=== PATIENT | male | born 1930 | race Caucasian/White ===

== ENCOUNTER → 2017-02-27 | Outpatient (CLI) | payer MEDICARE ==
[2017-02-27 10:20] LABS: Basophils % (A) 1 %; CH 29.4; CHCM 30.6; Eosinophils # (A) 0.3 k/uL (0-0.7); Eosinophils % (A) 5 %; HCT 43.8 % (39.0-53.0); HDW 2.18; HGB 13.8 gm/dL (13.0-17.5); Hypochromasia Slight; Luc # (Auto) 0.19; Luc % (Auto) 4; Lymphocytes # (A) 1.3 k/uL (1.0-4.8); Lymphocytes % (A) 24 %; MCH 30.6 pg (25.0-35.0); MCHC 31.6 g/dL (31.0-37.0); MCV 96.6 fL (80.0-100.0); Mean Platelet Volume 9.9; Monocytes # (A) 0.5 k/uL (0-1.0); Monocytes % (A) 9 %; Neutrophils # (A) 3.1 k/uL (1.3-7.7); Neutrophils % (A) 57 %; RBC 4.53 m/uL (4.30-5.90); RDW 13.5 % (11.5-15.5); WBC 5.4 k/uL (3.8-10.6); WBC (Perox) 5.33
[2017-02-27 10:57] LABS: ALT 33 U/L (21-72); AST 20 U/L (17-59); Alkaline Phosphatase 65 U/L (38-126); Anion Gap 8 mmol/L; Blood Urea Nitrogen 23 mg/dL (9-20); Calcium 9.4 mg/dL (8.4-10.2); Carbon Dioxide 30 mmol/L (22-30); Chloride 104 mmol/L (98-107); Cholesterol 150 mg/dL (<200); Glucose 96 mg/dL (74-99); HDL Cholesterol 39 mg/dL (40-60); Non-African American GFR(MDRD) >60 (>60 ml/min/1.73 sqM); Sodium 142 mmol/L (137-145); Total Bilirubin 0.3 mg/dL (0.2-1.3); Total Protein 7.1 g/dL (6.3-8.2)
== END | disposition home or self-care (01) ==
LOC: LABWHC1 09:30
PROVIDERS: ATTEND Family Medicine
DX: I10 Essential (primary) hypertension (principal)
CPT/HCPCS: 36415; 80053; 80061; 84439; 84443; 85025

== ENCOUNTER → 2018-08-30 | Outpatient (CLI) | payer MEDICARE ==
--- NOTE | 2018-08-30 08:47 | US ---
"EXAMINATION TYPE: US duplex aorta DATE OF EXAM: 08/30/2018 COMPARISON: CT scan 02/11/2015 CLINICAL HISTORY: I71.4 Abdominal Aorta aneurysm. Known AAA EXAM MEASUREMENTS: Abdominal Aorta: Proximal: 2.6 x 2.6 cm Mid: 2.5 x 2.1 cm Distal: 4.6 x 5.2 cm Bifurcation: ELOY: 1.5 x 1.4 cm ANA ROSA: 1.5 x 1.5 cm Proximal and mid aorta ectatic and upper limits of normal for size/ Distal AAA IMPRESSION: 1. Findings are compatible with a infrarenal abdominal aortic aneurysm measuring 4.6 x 5.2 cm this is increased in size from the prior CT scan of 2014 where it measured 4.2 x 3.7 cm. A Yellow level critical message alert has been initiated for Phillip Lee MD via the [employer] 36 0 | Critical Results System on 08/30/2018 8:44 AM. This message alert has been sent to Phillip Lee MD via the preferences provided by the clinician for the receipt of Radiology Critical Findings. [facility] ID [id number]."
== END | disposition home or self-care (01) ==
LOC: RADUSWWP 08:20
PROVIDERS: ATTEND Family Medicine
DX: I71.4 Abdominal aortic aneurysm, without rupture (principal)
CPT/HCPCS: 93979

== ENCOUNTER 2018-09-08 11:50 | Emergency (ER) | payer MEDICARE ==
[2018-09-08 11:55] VITALS: RESP 18; TEMP 97.7
--- NOTE | 2018-09-08 12:17 | ED ---
General Adult HPI - General Chief complaint: Urogenital Stated complaint: groin pain Time Seen by Provider: 09/08/18 11:57 Source: patient, RN notes reviewed, old records reviewed Mode of arrival: ambulatory Limitations: no limitations - History of Present Illness Initial comments: 87-year-old male presents for evaluation of right groin pain. Patient has had previous pain in his right groin however 10 several years. He states over the past 1 week he's had increased pain. Denies dysuria. Denies fever or chills. Denies scrotal pain or swelling. States he's having normal bowel movements, no nausea or vomiting, no abdominal pain. No pain in the right leg. No chest pain or dyspnea. - Related Data Home Medications Medication Instructions Recorded Confirmed Lisinopril [Prinivil] 20 mg PO DAILY 12/11/13 02/24/15 Previous Rx's Medication Instructions Recorded Acetaminophen with Codeine 1 tab PO Q6H PRN 3 Days #12 tab 09/08/18 [Tylenol w/codeine #3] Allergies Allergy/AdvReac Type Severity Reaction Status Date / Time No Known Allergies Allergy Verified 09/08/18 11:55 Review of Systems ROS Statement: Those systems with pertinent positive or pertinent negative responses have been documented in the HPI. ROS Other: All systems not noted in ROS Statement are negative. Past Medical History Past Medical History: Cancer, Hypertension Additional Past Medical History / Comment(s): Bowel CA History of Any Multi-Drug Resistant Organisms: None Reported Past Surgical History: Bowel Resection, Prostate Surgery Additional Past Surgical History / Comment(s): bowel resection jan 2013 Past Anesthesia/Blood Transfusion Reactions: No Reported Reaction Past Psychological History: No Psychological Hx Reported Smoking Status: Never smoker Past Alcohol Use History: None Reported Past Drug Use History: None Reported - Past Family History Brother(s) Family Medical History: Cancer Sister(s) Family Medical History: Cancer General Exam Limitations: no limitations General appearance: alert, in no apparent distress Head exam: Present: atraumatic, normocephalic Eye exam: Present: normal appearance, PERRL ENT exam: Present: normal exam Neck exam: Present: normal inspection. Absent: tenderness, meningismus Respiratory exam: Present: normal lung sounds bilaterally. Absent: respiratory distress, wheezes Cardiovascular Exam: Present: regular rate, normal rhythm GI/Abdominal exam: Present: soft, hernia (Suspect right inguinal hernia, minimal tenderness, no overlying erythema). Absent: distended, tenderness exam: Present: normal inspection. Absent: testicular tenderness, scrotal swelling Extremities exam: Present: normal inspection, normal capillary refill, other (2+ radial pulse, 2+ DP and PT pulses on the right) Neurological exam: Present: alert, oriented X3, CN II-XII intact. Absent: motor sensory deficit Psychiatric exam: Present: normal affect, normal mood Skin exam: Present: warm, dry. Absent: cyanosis, diaphoretic, erythema Course Vital Signs 09/08/18 11:53 Temperature 97.7 F Pulse Rate 77 Respiratory 18 Rate Blood Pressure 174/81 O2 Sat by Pulse 96 Oximetry Medical Decision Making - Medical Decision Making 87-year-old male presented for evaluation of right groin pain. Patient has history of previous hernia as well as abdominal aortic aneurysm. Patient was seen earlier this month for evaluation of abdominal aortic aneurysm, this had increased in size measuring on ultrasound. Patient's pain began after this ultrasound was performed. He does have vascular surgery follow-up and [facility] in [place]. He is scheduled this week for additional imaging. Regarding the patient's groin pain, normal CBC, normal CMP, on exam he does have palpable right inguinal hernia which is not reducible. CT is performed, this shows fat- containing right inguinal hernia with normal bowel. CT does confirm enlargement of previously diagnosed abdominal aortic aneurysm. Ultrasound shows right inguinal lymphadenopathy. CT also shows several systolic renal masses, which patient has known about previously and has had biopsy with urology. Will follow-up with urology regarding renal mass. Diagnosis: Fat-containing right inguinal hernia, abdominal aortic aneurysm, renal mass Please follow up with your vascular surgeon, return with development of abdominal pain, chest pain, lightheadedness or dizziness, follow-up with urology regarding renal mass. - Lab Data Result diagrams: 09/08/18 12:25 09/08/18 12:25 Lab Results 09/08/18 09/08/18 09/08/18 Range/Units 12:00 12:25 12:25 WBC 7.2 (3.8-10.6) k/uL RBC 4.60 (4.30-5.90) m/uL Hgb 13.8 (13.0-17.5) gm/dL Hct 43.0 (39.0-53.0) % MCV 93.6 (80.0-100.0) fL MCH 30.0 (25.0-35.0) pg MCHC 32.0 (31.0-37.0) g/dL RDW 13.9 (11.5-15.5) % Plt Count 252 (150-450) k/uL Neutrophils % 69 % Lymphocytes % 16 % Monocytes % 7 % Eosinophils % 4 % Basophils % 1 % Neutrophils # 5.0 (1.3-7.7) k/uL Lymphocytes # 1.2 (1.0-4.8) k/uL Monocytes # 0.5 (0-1.0) k/uL Eosinophils # 0.3 (0-0.7) k/uL Basophils # 0.1 (0-0.2) k/uL Sodium 139 (137-145) mmol/L Potassium 4.3 (3.5-5.1) mmol/L Chloride 103 (98-107) mmol/L Carbon Dioxide 27 (22-30) mmol/L Anion Gap 9 mmol/L BUN 20 (9-20) mg/dL Creatinine 0.95 (0.66-1.25) mg/dL Est GFR (CKD-EPI)AfAm 84 (>60 ml/min/1.73 sqM) Est GFR (CKD-EPI)NonAf 73 (>60 ml/min/1.73 sqM) Glucose 102 H (74-99) mg/dL Plasma Lactic Acid Yg (0.7-2.0) mmol/L Calcium 9.5 (8.4-10.2) mg/dL Total Bilirubin 0.5 (0.2-1.3) mg/dL AST 15 L (17-59) U/L ALT 23 (21-72) U/L Alkaline Phosphatase 78 (38-126) U/L Total Protein 7.4 (6.3-8.2) g/dL Albumin 4.6 (3.5-5.0) g/dL Urine Color Light Yellow Urine Appearance Clear (Clear) Urine pH 6.5 (5.0-8.0) Ur Specific [place] 1.006 (1.001-1.035) Urine Protein Negative (Negative) Urine Glucose (UA) Negative (Negative) Urine Ketones Negative (Negative) Urine Blood Negative (Negative) Urine Nitrite Negative (Negative) Urine Bilirubin Negative (Negative) Urine Urobilinogen <2.0 (<2.0) mg/dL Ur Leukocyte Esterase Negative (Negative) 09/08/18 Range/Units 12:25 WBC (3.8-10.6) k/uL RBC (4.30-5.90) m/uL Hgb (13.0-17.5) gm/dL Hct (39.0-53.0) % MCV (80.0-100.0) fL MCH (25.0-35.0) pg MCHC (31.0-37.0) g/dL RDW (11.5-15.5) % Plt Count (150-450) k/uL Neutrophils % % Lymphocytes % % Monocytes % % Eosinophils % % Basophils % % Neutrophils # (1.3-7.7) k/uL Lymphocytes # (1.0-4.8) k/uL Monocytes # (0-1.0) k/uL Eosinophils # (0-0.7) k/uL Basophils # (0-0.2) k/uL Sodium (137-145) mmol/L Potassium (3.5-5.1) mmol/L Chloride (98-107) mmol/L Carbon Dioxide (22-30) mmol/L Anion Gap mmol/L BUN (9-20) mg/dL Creatinine (0.66-1.25) mg/dL Est GFR (CKD-EPI)AfAm (>60 ml/min/1.73 sqM) Est GFR (CKD-EPI)NonAf (>60 ml/min/1.73 sqM) Glucose (74-99) mg/dL Plasma Lactic Acid Yg 1.3 (0.7-2.0) mmol/L Calcium (8.4-10.2) mg/dL Total Bilirubin (0.2-1.3) mg/dL AST (17-59) U/L ALT (21-72) U/L Alkaline Phosphatase (38-126) U/L Total Protein (6.3-8.2) g/dL Albumin (3.5-5.0) g/dL Urine Color Urine Appearance (Clear) Urine pH (5.0-8.0) Ur Specific [place] (1.001-1.035) Urine Protein (Negative) Urine Glucose (UA) (Negative) Urine Ketones (Negative) Urine Blood (Negative) Urine Nitrite (Negative) Urine Bilirubin (Negative) Urine Urobilinogen (<2.0) mg/dL Ur Leukocyte Esterase (Negative) Disposition Clinical Impression: Inguinal hernia, Abdominal aortic aneurysm (AAA) 3.0 cm to 5.5 cm in diameter in male, Renal mass Disposition: HOME SELF-CARE Condition: Good Instructions (If sedation given, give patient instructions): Nonruptured Abdom inal Aortic Aneurysm (DC), Inguinal Hernia (ED) Additional Instructions: Please follow up with urology and your vascular surgeon. Prescriptions: Acetaminophen with Codeine [Tylenol w/codeine #3] 1 tab PO Q6H PRN 3 Days #12 tab PRN Reason: Pain Is patient prescribed a controlled substance at d/c from ED?: Yes When asked, does pt state using other controlled substances?: No If prescribed controlled substance>3 days was MAPS reviewed?: Prescribed <3 Days If opioid is for acute pain is fill amount 7 days or less?: Yes If Rx opioid, was Start Talking consent form obtained?: Yes Referrals: Phillip Lee MD [Primary Care Provider] - 1-2 days Robin Price MD [STAFF PHYSICIAN] - 1-2 days Time of Disposition: 14:49
[2018-09-08 12:25] LABS: Appearance,Urine Clear (Clear); Bilirubin,Urine Negative (Negative); Blood,Urine Negative (Negative); Color,Urine Light Yellow; Glucose,Urine (UA) Negative (Negative); Ketones,Urine Negative (Negative); Leukocyte Esterase,Urine Negative (Negative); Nitrite,Urine Negative (Negative); PH, Urine 6.5 (5.0-8.0); Protein,Urine Negative (Negative); Specific Gravity,Urine 1.006 (1.001-1.035); Urobilinogen,Urine <2.0 mg/dL (<2.0)
[2018-09-08 12:37] LABS: Basophils # (A) 0.1 k/uL (0-0.2); Basophils % (A) 1 %; Eosinophils # (A) 0.3 k/uL (0-0.7); Eosinophils % (A) 4 %; HGB 13.8 gm/dL (13.0-17.5); Lymphocytes # (A) 1.2 k/uL (1.0-4.8); Lymphocytes % (A) 16 %; MCV 93.6 fL (80.0-100.0); Mean Platelet Volume 10.1; Monocytes # (A) 0.5 k/uL (0-1.0); Monocytes % (A) 7 %; Neutrophils % (A) 69 %; Platelet Count 252 k/uL (150-450); RDW 13.9 % (11.5-15.5); WBC 7.2 k/uL (3.8-10.6)
[2018-09-08 12:46] LABS: Albumin 4.6 g/dL (3.5-5.0); Calcium 9.5 mg/dL (8.4-10.2); Potassium 4.3 mmol/L (3.5-5.1); Total Bilirubin 0.5 mg/dL (0.2-1.3); Total Protein 7.4 g/dL (6.3-8.2)
--- NOTE | 2018-09-08 12:53 | US ---
EXAMINATION TYPE: US groin RT DATE OF EXAM: 09/08/2018 COMPARISON: NONE CLINICAL HISTORY: Pain. Intermittent pain right groin for 1 week Possible lymph node right groin = 2.6 x 0.6 x 2.9cm IMPRESSION: Right inguinal lymph node. Otherwise unremarkable study.
--- NOTE | 2018-09-08 14:35 | CT ---
EXAMINATION TYPE: CT abdomen pelvis w con DATE OF EXAM: 09/08/2018 COMPARISON: CT abdomen 02/11/2015 HISTORY: 87-year-old male Right sided groin pain TECHNIQUE: Contiguous axial scanning of the abdomen and pelvis following administration of 100 ml Iso christianne 300 IV contrast. Delayed images through the kidneys and coronal/sagittal reconstructions perform ed. CT DLP: 780.5 mGycm Automated exposure control for dose reduction was used. FINDINGS: Heart upper limits of normal in size without pericardial effusion. Ascending aorta borderline ectatic at 3.5 cm. Prominent strandy atelectasis in the lower lungs without pleural effusion. Tiny hiatal hernia. Small amount of focal fat along the anterior falciform ligament. Otherwise, no focal liver lesion. No biliary ductal dilatation. Portal venous system is patent. Gallbladder, and pancreas show no gross abnormality. No dilated small bowel, free fluid, or free air. Numerous calcified granulomas in the spleen. Bilateral renal lesions are present. Some of these represent cysts the right lower pole measuring up to 2.3 cm. However, some of these lesions appear to be solid and enhancing, largest lateral left kidney measurin g 4.8 x 3.0 cm versus 3.6 x 2.3 cm, previously. Possible additional subtle lesion at the left lower pole measuring 1.7 cm versus 1.6 cm, previously. Additional solid cortical lesion measuring 1.9 cm anterior right lower pole versus 1.3 cm, previously . Additional suspicious lesion medial right upper pole cortex measuring 1.4 cm not clearly seen previou sly. Mild diffuse thickening of the adrenal glands is unchanged. Redemonstrated AAA. This is increased in size from 2015 now measuring 5.3 cm versus 4.3 cm, previousl y. No dilated small bowel, free fluid, or free air. Mild rectus diastases with bulging intra-abdominal fat and some small bowel loops. Moderate stool burden without pericolonic inflammatory change. No mesenteric or retroperitoneal lymphadenopathy seen. Bladder not distended. There is a moderate-sized fat-containing right indirect inguinal hernia. Normal appendix. Bladder nondistended. Multiple surgical clips at the prostate bed. Some mottled debris within low-lyi ng small bowel loops in the pelvis possible fiber food bolus. No obstructive changes are seen. Bones: Degenerative changes of the hips and right greater than left SI joints. Additional facet arthr opathy. Degenerative disc disease L5-S1. IMPRESSION: 1. MULTIPLE RENAL LESIONS. SOME OF THESE REPRESENT CYSTS AND OTHERS APPEAR TO BE SOLID ENHANCING MASS ES. THE LARGEST MEASURES 4.8 CM LATERAL LEFT KIDNEY VERSUS 3.6 CM ON 02/11/2015. CORRELATE WITH PRIOR BIOPSY RESULTS. RCC NOT EXCLUDED AT THIS TIME. ADDITIONAL SOLID RENAL MASSES OUTLINED ABOVE. UROLO GY REFERRAL RECOMMENDED FOR APPROPRIATE FURTHER EVALUATION OR SURVEILLANCE. 2. ENLARGING AAA NOW MEASURING 5.3 CM VERSUS 4.3 CM BACK IN 2015. 3. MODERATE-SIZED FAT-CONTAINING RIGHT INDIRECT INGUINAL HERNIA.
[2018-09-08 15:13] VITALS: BP 163/82; PULSE 85
== END 2018-09-08 15:09 | disposition home or self-care (01) ==
LOC: EC 11:50
DX: I71.4 Abdominal aortic aneurysm, without rupture (principal); K40.90 Unilateral inguinal hernia, without obstruction or gangrene, not specified as recurrent; N28.89 Other specified disorders of kidney and ureter; I10 Essential (primary) hypertension; Z85.038 Personal history of other malignant neoplasm of large intestine; Z98.890 Other specified postprocedural states; Z79.899 Other long term (current) drug therapy
CPT/HCPCS: 36415; 80053; 83605; 85025; 81003; 76882; 74177; 99284; Q9967

== ENCOUNTER → 2019-11-22 | Outpatient (CLI) | payer MEDICARE ==
[2019-11-22 11:12] LABS: Basophils # (A) 0.1 k/uL (0-0.2); Basophils % (A) 1 %; Eosinophils # (A) 0.3 k/uL (0-0.7); Eosinophils % (A) 4 %; HCT 42.8 % (39.0-53.0); HGB 13.1 gm/dL (13.0-17.5); Hypochromasia Slight; Lymphocytes # (A) 1.5 k/uL (1.0-4.8); Lymphocytes % (A) 20 %; MCH 29.7 pg (25.0-35.0); MCHC 30.7 g/dL (31.0-37.0); MCV 96.9 fL (80.0-100.0); Mean Platelet Volume 9.3; Monocytes # (A) 0.7 k/uL (0-1.0); Monocytes % (A) 10 %; Neutrophils # (A) 4.6 k/uL (1.3-7.7); Neutrophils % (A) 62 %; Platelet Count 358 k/uL (150-450); RBC 4.41 m/uL (4.30-5.90); RDW 13.8 % (11.5-15.5); WBC 7.3 k/uL (3.8-10.6)
[2019-11-22 15:19] LABS: African American GFR (CKD) 77.5 (60.0-200.0); Albumin 4.3 g/dL (3.80-4.90); Albumin/Globulin Ratio 1.79 (1.60-3.17); Anion Gap 6.3 mmol/L (4.00-12.00); Calcium 9.2 mg/dL (8.7-10.3); Carbon Dioxide 28.7 mmol/L (21.6-31.8); Chol/HDL Ratio 3.5; Globulin 2.4 g/dL (1.6-3.3); LDL Cholesterol,Calculated 83.8 mg/dL (0.0-131.0); Non-African American GFR(CKD) 66.9 (60.0-200.0); Potassium 4.1 mmol/L (3.5-5.5); Total Bilirubin 0.4 mg/dL (0.2-1.2); Total Protein 6.7 g/dL (6.2-8.2); VLDL Calculation 21.2 mg/dL (5.00-40.00)
[2019-11-22 17:14] LABS: T4, Free (Free Thyroxine) 0.9 ng/dL (0.80-1.80)
== END | disposition home or self-care (01) ==
LOC: LABWHC1 10:05
PROVIDERS: ATTEND Family Medicine
DX: I10 Essential (primary) hypertension (principal)
CPT/HCPCS: 36415; 80053; 80061; 84439; 84443; 85025

== ENCOUNTER 2020-01-20 07:12 | Emergency (ER) | payer MEDICARE ==
[2020-01-20 07:18] VITALS: RESP 18
--- NOTE | 2020-01-20 07:45 | ED ---
Anxiety HPI - General Chief Complaint: Anxiety Stated Complaint: anxiety Time Seen by Provider: 01/20/20 07:27 Source: patient, family, RN notes reviewed Mode of arrival: ambulatory - History of Present Illness Initial Comments: This is an 81-year-old male with a history of anxiety history of prostate surgery in the past with the complaints of anxiety going on for. Time he states he was on an AAA for a long time was offered he's been more anxious lately he started Lexapro last couple days but he took only one or 2 doses he states it made him sick. He did not sure what exactly is making him anxious. He denies any fevers chills nausea vomiting sweats cough or phlegm production does complain some left low back pain for the past 2-3 days somewhat sharp in nature. No known injury no radiation. No trouble with urination no other complaints at this time. MD Complaint: anxiety, other - Related Data Home Medications: Home Medications Medication Instructions Recorded Confirmed lisinopriL [Prinivil] 20 mg PO DAILY 12/11/13 02/24/15 Previous Rx's Medication Instructions Recorded Acetaminophen with Codeine 1 tab PO Q6H PRN 3 Days #12 tab 09/08/18 [Tylenol w/codeine #3] ALPRAZolam [Xanax] 0.25 mg PO BID PRN 3 Days #6 tab 01/20/20 Allergies/Adverse Reactions: Allergies Allergy/AdvReac Type Severity Reaction Status Date / Time No Known Allergies Allergy Verified 01/20/20 07:18 Review of Systems ROS Statement: Those systems with pertinent positive or pertinent negative responses have been documented in the HPI. ROS Other: All systems not noted in ROS Statement are negative. Past Medical History Past Medical History: Cancer, Hypertension Additional Past Medical History / Comment(s): Bowel CA History of Any Multi-Drug Resistant Organisms: None Reported Past Surgical History: Bowel Resection, Prostate Surgery Additional Past Surgical History / Comment(s): bowel resection jan 2013 Past Anesthesia/Blood Transfusion Reactions: No Reported Reaction Past Psychological History: No Psychological Hx Reported Smoking Status: Never smoker Past Alcohol Use History: None Reported Past Drug Use History: None Reported - Past Family History Brother(s) Family Medical History: Cancer Sister(s) Family Medical History: Cancer General Exam - General Exam Comments Initial Comments: This is a well-developed well-nourished awake alert oriented times 3 male Limitations: no limitations General appearance: alert, in no apparent distress Head exam: Present: atraumatic, normocephalic, normal inspection Eye exam: Present: normal appearance, PERRL, EOMI. Absent: scleral icterus, conjunctival injection, periorbital swelling ENT exam: Present: normal exam, mucous membranes moist Neck exam: Present: normal inspection. Absent: tenderness, meningismus, lymphadenopathy Respiratory exam: Present: normal lung sounds bilaterally. Absent: respiratory distress, wheezes, rales, rhonchi, stridor Cardiovascular Exam: Present: regular rate, normal rhythm, normal heart sounds. Absent: systolic murmur, diastolic murmur, rubs, gallop, clicks GI/Abdominal exam: Present: soft, normal bowel sounds. Absent: distended, tenderness, guarding, rebound, rigid Extremities exam: Present: normal inspection, full ROM, normal capillary refill. Absent: tenderness, pedal edema, joint swelling, calf tenderness Back exam: Present: normal inspection, full ROM, CVA tenderness (L). Absent: paraspinal tenderness, vertebral tenderness Neurological exam: Present: alert, oriented X3, CN II-XII intact Psychiatric exam: Present: normal affect, normal mood Skin exam: Present: warm, dry, intact, normal color. Absent: rash Course Vital Signs 01/20/20 07:12 Temperature 97.6 F Pulse Rate 74 Respiratory 18 Rate Blood Pressure 168/84 O2 Sat by Pulse 97 Oximetry Medical Decision Making - Medical Decision Making I did discuss findings the patient has . I also Dr. Lee. Patient will be started on a short course of Xanax and follow-up in the office he does have an appointment for tomorrow. He does say when he took Lexapro he started having diarrhea and did not feel well some dizziness. - Lab Data Result diagrams: 01/20/20 07:47 01/20/20 07:47 Lab Results 01/20/20 01/20/20 01/20/20 Range/Units 07:47 07:47 07:47 WBC 9.2 (3.8-10.6) k/uL RBC 4.65 (4.30-5.90) m/uL Hgb 13.7 (13.0-17.5) gm/dL Hct 43.6 (39.0-53.0) % MCV 93.7 (80.0-100.0) fL MCH 29.5 (25.0-35.0) pg MCHC 31.4 (31.0-37.0) g/dL RDW 13.8 (11.5-15.5) % Plt Count 415 (150-450) k/uL Neutrophils % 67 % Lymphocytes % 15 % Monocytes % 11 % Eosinophils % 3 % Basophils % 1 % Neutrophils # 6.2 (1.3-7.7) k/uL Lymphocytes # 1.4 (1.0-4.8) k/uL Monocytes # 1.1 H (0-1.0) k/uL Eosinophils # 0.3 (0-0.7) k/uL Basophils # 0.1 (0-0.2) k/uL Sodium 136 L (137-145) mmol/L Potassium 4.2 (3.5-5.1) mmol/L Chloride 98 (98-107) mmol/L Carbon Dioxide 27 (22-30) mmol/L Anion Gap 11 mmol/L BUN 21 H (9-20) mg/dL Creatinine 0.85 (0.66-1.25) mg/dL Est GFR (CKD-EPI)AfAm >90 (>60 ml/min/1.73 sqM) Est GFR (CKD-EPI)NonAf 78 (>60 ml/min/1.73 sqM) Glucose 110 H (74-99) mg/dL Calcium 9.7 (8.4-10.2) mg/dL Magnesium 1.8 (1.6-2.3) mg/dL Total Bilirubin 0.7 (0.2-1.3) mg/dL AST 20 (17-59) U/L ALT 14 (4-49) U/L Alkaline Phosphatase 68 (38-126) U/L Creatine Kinase 66 (55-170) U/L Total Protein 7.5 (6.3-8.2) g/dL Albumin 4.6 (3.5-5.0) g/dL Lipase 118 (23-300) U/L Urine Color Yellow Urine Appearance Clear (Clear) Urine pH 8.0 (5.0-8.0) Ur Specific [place] 1.014 (1.001-1.035) Urine Protein Negative (Negative) Urine Glucose (UA) Negative (Negative) Urine Ketones Negative (Negative) Urine Blood Negative (Negative) Urine Nitrite Negative (Negative) Urine Bilirubin Negative (Negative) Urine Urobilinogen <2.0 (<2.0) mg/dL Ur Leukocyte Esterase Negative (Negative) - Radiology Data Radiology results: report reviewed (I did review the imaging and report no acute findings.), image reviewed Disposition Clinical Impression: Acute anxiety Disposition: HOME SELF-CARE Condition: Good Instructions (If sedation given, give patient instructions): Generalized Anxiety Disorder (ED) Prescriptions: ALPRAZolam [Xanax] 0.25 mg PO BID PRN 3 Days #6 tab PRN Reason: Anxiety Is patient prescribed a controlled substance at d/c from ED?: Yes When asked, does pt state using other controlled substances?: Yes If prescribed controlled substance>3 days was MAPS reviewed?: Prescribed <3 Days Referrals: Phillip Lee MD [Primary Care Provider] - 1-2 days
[2020-01-20 08:08] LABS: Basophils # (A) 0.1 k/uL (0-0.2); Basophils % (A) 1 %; Eosinophils # (A) 0.3 k/uL (0-0.7); Eosinophils % (A) 3 %; HCT 43.6 % (39.0-53.0); HGB 13.7 gm/dL (13.0-17.5); Lymphocytes # (A) 1.4 k/uL (1.0-4.8); Lymphocytes % (A) 15 %; MCH 29.5 pg (25.0-35.0); MCHC 31.4 g/dL (31.0-37.0); MCV 93.7 fL (80.0-100.0); Mean Platelet Volume 9.5; Monocytes # (A) 1.1 k/uL (0-1.0); Monocytes % (A) 11 %; Neutrophils # (A) 6.2 k/uL (1.3-7.7); Neutrophils % (A) 67 %; Platelet Count 415 k/uL (150-450); RBC 4.65 m/uL (4.30-5.90); RDW 13.8 % (11.5-15.5); WBC 9.2 k/uL (3.8-10.6)
[2020-01-20 08:14] LABS: Appearance,Urine Clear (Clear); Bilirubin,Urine Negative (Negative); Blood,Urine Negative (Negative); Color,Urine Yellow; Glucose,Urine (UA) Negative (Negative); Ketones,Urine Negative (Negative); Leukocyte Esterase,Urine Negative (Negative); Nitrite,Urine Negative (Negative); Protein,Urine Negative (Negative); Specific Gravity,Urine 1.014 (1.001-1.035); Urobilinogen,Urine <2.0 mg/dL (<2.0)
[2020-01-20 08:18] LABS: ALT 14 U/L (4-49); AST 20 U/L (17-59); African American GFR (CKD) >90 (>60 ml/min/1.73 sqM); Albumin 4.6 g/dL (3.5-5.0); Alkaline Phosphatase 68 U/L (38-126); Anion Gap 11 mmol/L; Blood Urea Nitrogen 21 mg/dL (9-20); Calcium 9.7 mg/dL (8.4-10.2); Carbon Dioxide 27 mmol/L (22-30); Chloride 98 mmol/L (98-107); Creatine Kinase 66 U/L (55-170); Glucose 110 mg/dL (74-99); Magnesium 1.8 mg/dL (1.6-2.3); Non-African American GFR(CKD) 78 (>60 ml/min/1.73 sqM); Potassium 4.2 mmol/L (3.5-5.1); Sodium 136 mmol/L (137-145); Total Bilirubin 0.7 mg/dL (0.2-1.3); Total Protein 7.5 g/dL (6.3-8.2)
--- NOTE | 2020-01-20 08:36 | XR ---
EXAMINATION TYPE: XR chest 2V DATE OF EXAM: 01/20/2020 CLINICAL HISTORY: Left flank pain TECHNIQUE: Frontal and lateral views of the chest are obtained. COMPARISON: 03/02/2016 chest radiograph FINDINGS: Redemonstrated flattening of the hemidiaphragms. The cardiomediastinal silhouette is withi n normal limits for size and not significantly changed from 03/02/2016 comparison. Pulmonary vasculat ure is normal. There is no focal air space opacity, pleural effusion, or pneumothorax seen. Degenerat king changes of the spine. IMPRESSION: No acute cardiopulmonary process.
--- NOTE | 2020-01-20 08:41 | XR ---
EXAMINATION TYPE: XR KUB DATE OF EXAM: 01/20/2020 8:06 AM CLINICAL HISTORY: Left posterior flank pain TECHNIQUE: Upright images of the abdomen and pelvis were obtained COMPARISON: None. FINDINGS: Nonspecific bowel gas pattern. There is no pneumoperitoneum or abnormal calcification appre ciated. The lung bases are clear. Degenerative changes of the spine and hips. Pelvic surgical clips. IMPRESSION: 1. Nonspecific bowel gas pattern. 2. No definitive renal calculi seen.
[2020-01-20] MEDS ORDERED: ALPRAZolam 0.25 MG TAB PO STA (09:22)
[2020-01-20 09:38] VITALS: BP 142/83; PULSE 77; TEMP 98.7
== END 2020-01-20 09:38 | disposition home or self-care (01) ==
LOC: EC 07:12
DX: F41.9 Anxiety disorder, unspecified (principal); R19.7 Diarrhea, unspecified
CPT/HCPCS: 36415; 71046; 74018; 80053; 81003; 82550; 83690; 83735; 85025; 99283

== ENCOUNTER 2020-04-05 11:42 | Observation (INO) | payer MEDICARE ==
--- NOTE | 2020-04-05 12:15 | ED ---
Nausea/Vomiting/Diarrhea HPI - General Chief complaint: Nausea/Vomiting/Diarrhea Stated complaint: Diarrhea Time Seen by Provider: 04/05/20 12:15 Source: patient, family Mode of arrival: ambulatory Limitations: no limitations - History of Present Illness Initial comments: 89-year-old male presenting to emergency Department with a chief complaint of diarrhea. Patient reports for the past 8 days she's been having perfuse, watery diarrhea. States that everything he is eating goes right through him. Daughter is also present to answer additional questions and she states that the patient has been losing weight over the past few months. She states they have been feeding him fluids full with electrolytes. Patient denies any chest pain, back pain, abdominal pain, nausea vomiting. Denies any testicular swelling, pain or penile discharge. Denies any night sweats fevers or chills. Daughter states the patient has an abdominal aortic aneurysm which is closely monitored by a vascular group in [facility]. He denies recent antibiotic use or drinking any pond water or unfiltered water. He denies hematuria, hematochezia or melena - Related Data Home Medications Medication Instructions Recorded Confirmed LORazepam [Ativan] 0.5 mg PO BID PRN 04/05/20 04/05/20 Lisinopril-Hctz 20-12.5 mg 1 tab PO DAILY 04/05/20 04/05/20 [Zestoretic 20-12.5] Loperamide HCl [Imodium] 4 mg PO Q12H PRN 04/05/20 04/05/20 Sertraline [Zoloft] 25 mg PO DAILY 04/05/20 04/05/20 Vortioxetine Hydrobromide 10 mg PO DAILY 04/05/20 04/05/20 [Trintellix] Allergies Allergy/AdvReac Type Severity Reaction Status Date / Time No Known Allergies Allergy Verified 04/05/20 13:52 Review of Systems ROS Statement: Those systems with pertinent positive or pertinent negative responses have been documented in the HPI. ROS Other: All systems not noted in ROS Statement are negative. Past Medical History Past Medical History: Cancer, Hypertension, Thyroid Disorder Additional Past Medical History / Comment(s): Bowel CA, hypothyroid, prostate ca History of Any Multi-Drug Resistant Organisms: None Reported Past Surgical History: Bowel Resection, Prostate Surgery Additional Past Surgical History / Comment(s): bowel resection jan 2013 Past Anesthesia/Blood Transfusion Reactions: No Reported Reaction Past Psychological History: No Psychological Hx Reported Smoking Status: Never smoker Past Alcohol Use History: None Reported Past Drug Use History: None Reported - Past Family History Brother(s) Family Medical History: Cancer Sister(s) Family Medical History: Cancer General Exam Limitations: no limitations General appearance: alert, in no apparent distress Head exam: Present: atraumatic, normocephalic, normal inspection Eye exam: Present: normal appearance, PERRL, EOMI Pupils: Present: normal accommodation ENT exam: Present: normal exam, normal oropharynx, mucous membranes moist, TM's normal bilaterally, normal external ear exam Neck exam: Present: normal inspection, full ROM. Absent: tenderness Respiratory exam: Present: normal lung sounds bilaterally. Absent: respiratory distress, wheezes, rales Cardiovascular Exam: Present: regular rate, normal rhythm, normal heart sounds GI/Abdominal exam: Present: soft, normal bowel sounds, pulsatile mass. Absent: distended, tenderness, guarding, rebound, rigid Extremities exam: Present: normal inspection, full ROM, normal capillary refill. Absent: tenderness, pedal edema, joint swelling, calf tenderness Back exam: Present: normal inspection, full ROM. Absent: tenderness, CVA tenderness (R), CVA tenderness (L), muscle spasm, paraspinal tenderness, vertebral tenderness Neurological exam: Present: alert, oriented X3, normal gait Psychiatric exam: Present: normal affect, normal mood Skin exam: Present: warm, dry, intact, normal color Course Vital Signs 04/05/20 12:01 Temperature 97.5 F L Pulse Rate 78 Respiratory 16 Rate Blood Pressure 103/63 O2 Sat by Pulse 95 Oximetry Medical Decision Making - Medical Decision Making 89-year-old male presenting to the emergency department with a chief complaint of diarrhea. Physical examination is unremarkable for dry mucous membranes. No abdominal or back pain. CBC reveals mild anemia. CMP reveals decreased renal function with UN of 50, creatinine 1.53 and GFR of 39. I suspect this is secondary to dehydration and fluid loss from the diarrhea. UA still pending. C. diff negative. Stool culture pending. Patient given IV bolus fluids. CT without contrast reveals nonspecific colitis. I spoke with who will admit the patient. Case discussed with - Lab Data Result diagrams: 04/05/20 13:01 04/05/20 13:01 Lab Results 04/05/20 04/05/20 04/05/20 Range/Units 13: 13:01 13:01 WBC 8.7 (3.8-10.6) k/uL RBC 3.87 L (4.30-5.90) m/uL Hgb 12.4 L (13.0-17.5) gm/dL Hct 36.6 L (39.0-53.0) % MCV 94.5 (80.0-100.0) fL MCH 32.0 (25.0-35.0) pg MCHC 33.9 (31.0-37.0) g/dL RDW 13.6 (11.5-15.5) % Plt Count 390 (150-450) k/uL MPV 9.5 Neutrophils % 77 % Lymphocytes % 11 % Monocytes % 8 % Eosinophils % 2 % Basophils % 1 % Neutrophils # 6.7 (1.3-7.7) k/uL Lymphocytes # 0.9 L (1.0-4.8) k/uL Monocytes # 0.7 (0-1.0) k/uL Eosinophils # 0.2 (0-0.7) k/uL Basophils # 0.1 (0-0.2) k/uL Sodium 136 L (137-145) mmol/L Potassium 3.2 L (3.5-5.1) mmol/L Chloride 106 (98-107) mmol/L Carbon Dioxide 21 L (22-30) mmol/L Anion Gap 9 mmol/L BUN 53 H (9-20) mg/dL Creatinine 1.57 H (0.66-1.25) mg/dL Est GFR (CKD-EPI)AfAm 45 (>60 ml/min/1.73 sqM) Est GFR (CKD-EPI)NonAf 39 (>60 ml/min/1.73 sqM) Glucose 107 H (74-99) mg/dL Plasma Lactic Acid Yg (0.7-2.0) mmol/L Calcium 8.8 (8.4-10.2) mg/dL Total Bilirubin 0.5 (0.2-1.3) mg/dL AST 13 L (17-59) U/L ALT 9 (4-49) U/L Alkaline Phosphatase 71 (38-126) U/L Troponin I <0.012 (0.000-0.034) ng/mL Total Protein 6.2 L (6.3-8.2) g/dL Albumin 3.5 (3.5-5.0) g/dL Amylase 44 (30-110) U/L Lipase 27 (23-300) U/L C. difficile (EIA) Intrp (Negative) 04/05/20 04/05/20 Range/Units 13:01 13:01 WBC (3.8-10.6) k/uL RBC (4.30-5.90) m/uL Hgb (13.0-17.5) gm/dL Hct (39.0-53.0) % MCV (80.0-100.0) fL MCH (25.0-35.0) pg MCHC (31.0-37.0) g/dL RDW (11.5-15.5) % Plt Count (150-450) k/uL MPV Neutrophils % % Lymphocytes % % Monocytes % % Eosinophils % % Basophils % % Neutrophils # (1.3-7.7) k/uL Lymphocytes # (1.0-4.8) k/uL Monocytes # (0-1.0) k/uL Eosinophils # (0-0.7) k/uL Basophils # (0-0.2) k/uL Sodium (137-145) mmol/L Potassium (3.5-5.1) mmol/L Chloride (98-107) mmol/L Carbon Dioxide (22-30) mmol/L Anion Gap mmol/L BUN (9-20) mg/dL Creatinine (0.66-1.25) mg/dL Est GFR (CKD-EPI)AfAm (>60 ml/min/1.73 sqM) Est GFR (CKD-EPI)NonAf (>60 ml/min/1.73 sqM) Glucose (74-99) mg/dL Plasma Lactic Acid Yg 1.0 (0.7-2.0) mmol/L Calcium (8.4-10.2) mg/dL Total Bilirubin (0.2-1.3) mg/dL AST (17-59) U/L ALT (4-49) U/L Alkaline Phosphatase (38-126) U/L Troponin I (0.000-0.034) ng/mL Total Protein (6.3-8.2) g/dL Albumin (3.5-5.0) g/dL Amylase (30-110) U/L Lipase (23-300) U/L C. difficile (EIA) Intrp Negative (Negative) Disposition Clinical Impression: Dehydration, Diarrhea Disposition: ADMITTED IP TO THIS HOSP Condition: Fair Instructions (If sedation given, give patient instructions): Acute Diarrhea (ED) Additional Instructions: She will be admitted Is patient prescribed a controlled substance at d/c from ED?: No Referrals: Phillip Lee MD [Primary Care Provider] - 1-2 days Time of Disposition: 15:10
[2020-04-05] MEDS ORDERED: SODIUM CHLORIDE 0.9% 1,000 ML IV STA ×2 (12:31→14:28)
[2020-04-05 13:07] LABS: Basophils # (A) 0.1 k/uL (0-0.2); Basophils % (A) 1 %; Eosinophils # (A) 0.2 k/uL (0-0.7); Eosinophils % (A) 2 %; HCT 36.6 % (39.0-53.0); HGB 12.4 gm/dL (13.0-17.5); Lymphocytes # (A) 0.9 k/uL (1.0-4.8); Lymphocytes % (A) 11 %; MCHC 33.9 g/dL (31.0-37.0); MCV 94.5 fL (80.0-100.0); Mean Platelet Volume 9.5; Monocytes # (A) 0.7 k/uL (0-1.0); Monocytes % (A) 8 %; Neutrophils # (A) 6.7 k/uL (1.3-7.7); Neutrophils % (A) 77 %; Platelet Count 390 k/uL (150-450); RBC 3.87 m/uL (4.30-5.90); RDW 13.6 % (11.5-15.5); WBC 8.7 k/uL (3.8-10.6)
[2020-04-05 13:20] LABS: Albumin 3.5 g/dL (3.5-5.0); Calcium 8.8 mg/dL (8.4-10.2); Potassium 3.2 mmol/L (3.5-5.1); Total Bilirubin 0.5 mg/dL (0.2-1.3); Total Protein 6.2 g/dL (6.3-8.2)
[2020-04-05] MEDS ORDERED: POTASSIUM CHLORIDE ER 20 MEQ TAB.ER PO STA (14:31)
--- NOTE | 2020-04-05 14:59 | P.HPIM ---
History of Present Illness Patient is a pleasant 89-year-old male came in with complaints of multiple episodes of profuse diarrhea. Has been going on for about the 8 days has been losing weight because of this. Patient patient does have history of prostate c ancer received radiation therapy in 1986 followed by colon cancer with colectomy in 2012. Patient never had any symptoms symptoms in the past. Patient denied any fever chills body aches. CT of the abdomen is being obtained, results of which are pending at this time. C. diff was ordered which was negative. Patient has elevated creatinine patient is dehydrated at this time baseline creatinine is within normal limits present creatinine is 1.5. Patient denied any nausea vomiting or abdominal pain. Patient denied any recent travel or camping Review of Systems REVIEW OF SYSTEMS: CONSTITUTIONAL: No fever, no malaise, no fatigue. HEENT: No recent visual problems or hearing problems. Denied any sore throat. CARDIOVASCULAR: No chest pain, orthopnea, PND, no palpitations, no syncope. PULMONARY: No shortness of breath, no cough, no hemoptysis. GASTROINTESTINAL: As mentioned in HPI NEUROLOGICAL: No headaches, no weakness, no numbness. HEMATOLOGICAL: Denies any bleeding or petechiae. GENITOURINARY: Denies any burning micturition, frequency, or urgency. MUSCULOSKELETAL/RHEUMATOLOGICAL: Denies any joint pain, swelling, or any muscle pain. ENDOCRINE: Denies any polyuria or polydipsia. The rest of the 14-point review of systems is negative. Past Medical History Past Medical History: Cancer, Hypertension, Thyroid Disorder Additional Past Medical History / Comment(s): Bowel CA, hypothyroid, prostate ca History of Any Multi-Drug Resistant Organisms: None Reported Past Surgical History: Bowel Resection, Prostate Surgery Additional Past Surgical History / Comment(s): bowel resection jan 2013 Past Anesthesia/Blood Transfusion Reactions: No Reported Reaction Past Psychological History: No Psychological Hx Reported Smoking Status: Never smoker Past Alcohol Use History: None Reported Past Drug Use History: None Reported - Past Family History Brother(s) Family Medical History: Cancer Sister(s) Family Medical History: Cancer Medications and Allergies Home Medications Medication Instructions Recorded Confirmed Type LORazepam [Ativan] 0.5 mg PO BID PRN 04/05/20 04/05/20 History Lisinopril-Hctz 20-12.5 mg 1 tab PO DAILY 04/05/20 04/05/20 History [Zestoretic 20-12.5] Loperamide HCl [Imodium] 4 mg PO Q12H PRN 04/05/20 04/05/20 History Sertraline [Zoloft] 25 mg PO DAILY 04/05/20 04/05/20 History Vortioxetine Hydrobromide 10 mg PO DAILY 04/05/20 04/05/20 History [Trintellix] Allergies Allergy/AdvReac Type Severity Reaction Status Date / Time No Known Allergies Allergy Verified 04/05/20 13:52 Physical Exam Vitals: Vital Signs Temp Pulse Resp BP Pulse Ox 04/05/20 12:01 97.5 F L 78 16 103/63 95 Intake and Output 04/04/20 04/05/20 04/05/20 22:59 06:59 14:59 Other: Weight 62.596 kg PHYSICAL EXAMINATION: GENERAL: The patient is alert and oriented x3, not in any acute distress. Well developed, well nourished. HEENT: Pupils are round and equally reacting to light. EOMI. No scleral icterus. No conjunctival pallor. Normocephalic, atraumatic. No pharyngeal erythema. No thyromegaly. CARDIOVASCULAR: S1 and S2 present. No murmurs, rubs, or gallops. PULMONARY: Chest is clear to auscultation, no wheezing or crackles. ABDOMEN: Soft, nontender, nondistended, normoactive bowel sounds. No palpable organomegaly. MUSCULOSKELETAL: No joint swelling or deformity. EXTREMITIES: No cyanosis, clubbing, or pedal edema. NEUROLOGICAL: Gross neurological examination did not reveal any focal deficits. SKIN: No rashes. 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 Awaiting results of the CT of the abdomen. C. diff was ruled out. Gastric body will be consulted, so stool lactoferrin and stool culture was ordered we'll also order Giardia testing. -Acute renal failure: Secondary to diarrhea. We'll azotemia patient was started on 1 25 mL of normal saline will recheck the basic metabolic profile tomorrow -Hypokalemia secondary to diarrhea, we'll replace by protocol -Depression -Due to prophylaxis with heparin GI prophylaxis with Pepcid
--- NOTE | 2020-04-05 15:00 | CT ---
EXAMINATION TYPE: CT abdomen pelvis wo con DATE OF EXAM: 04/05/2020 COMPARISON: 09/08/2018 HISTORY: Diarrhea for [address] DLP: mGycm Automated exposure control for dose reduction was used. Images obtained from the diaphragm to the floor the pelvis with no contrast. There is some coarse interstitial density at the lung bases consistent with scarring and subsegmental atelectasis. There is no pleural effusion. Heart size is normal. There is no pericardial effusion. There are numerous calcified splenic granulomata. The liver appears intact. The bile ducts are not di lated. Stomach is intact. Spleen is intact. There is no evidence of pancreatic mass. There is no adrenal mass. Kidneys have normal size. There is 4.4 x 3.3 cm exophytic mass on the later al aspect left kidney with mixed attenuation. 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 There are bilateral multiple renal cortical cysts that measure up to 2.7 cm. There is exophytic intermediate density 2.5 cm focus lower pole left kidney that could be a complex c yst or additional tumor. This is increased from 1.7 cm on old exam. There is no hydronephrosis. Urete rs are not dilated. There is lower abdominal aortic aneurysm that measures 5.7 x 5.1 cm with thrombus on the left lateral wall. Thrombus measures 1 cm. 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 There is no retroperitoneal adenopathy. Bladder distends smoothly. There is right inguinal hernia contains fat. There are surgical clips at the floor the pelvis. There is an astomosis apparently at the rectosigmoid junction. There is mild wall thickening of the sigmoid colon . There is mild fat stranding in the right paracolic gutter. The small bowel appears normal. There is no ascites. There is no free air. There is broad-based 3 cm x 2 cm umbilical hernia that contains fa t. Lumbar vertebra have normal alignment. Disc spaces are fairly normal. Posterior elements are intact. There is multilevel hypertrophic facet arthropathy. There is no lumbar compression fracture. The bony pelvis appears intact. Hip joints are intact. IMPRESSION: There is some wall thickening of the sigmoid colon suggestive of some nonspecific colitis which is a change compared to old exam. There is abdominal aortic aneurysm measuring 5.7 cm in maximum dimension and increased from 5.3 cm on old exam. Left side renal masses as above. Lower pole mass slightly increased compared to old exam. Renal corti anh cysts. Fibrotic changes at the bases unchanged. Old granulomatous disease. Umbilical hernia unchanged.
[2020-04-05 15:24] LABS: Appearance,Urine Clear (Clear); Bilirubin,Urine Negative (Negative); Blood,Urine Negative (Negative); Color,Urine Light Yellow; Glucose,Urine (UA) Negative (Negative); Ketones,Urine Negative (Negative); Leukocyte Esterase,Urine Negative (Negative); Nitrite,Urine Negative (Negative); Protein,Urine Negative (Negative); Specific Gravity,Urine 1.013 (1.001-1.035); Urobilinogen,Urine <2.0 mg/dL (<2.0)
[2020-04-05] MEDS ORDERED: NALOXONE 0.4 MG/ML 1 ML VIAL IV PRN (15:32)
[2020-04-05] MEDS: POTASSIUM CHLORIDE ER 20 MEQ TAB.ER PO SCH ×2 (16:06→17:33)
[2020-04-05] MEDS: SODIUM CHLORIDE 0.9% 1,000 ML IV SCH (16:08)
[2020-04-05] MEDS: FAMOTIDINE 20 MG TAB PO SCH (20:49)
[2020-04-05] MEDS: HEPARIN SODIUM,PORCINE 5,000 UNIT/ML 1 ML VIAL SQ SCH (20:50)
[2020-04-05] MEDS: LOPERAMIDE 2 MG CAP PO PRN (20:50)
[2020-04-06] MEDS: SODIUM CHLORIDE 0.9% 1,000 ML IV SCH ×2 (03:57→07:52)
[2020-04-06 06:27] LABS: Calcium 8.4 mg/dL (8.4-10.2); Potassium 4.2 mmol/L (3.5-5.1)
[2020-04-06] MEDS: FAMOTIDINE 20 MG TAB PO SCH (07:52)
[2020-04-06] MEDS: LOPERAMIDE 2 MG CAP PO PRN ×2 (07:52→21:07)
[2020-04-06] MEDS: HEPARIN SODIUM,PORCINE 5,000 UNIT/ML 1 ML VIAL SQ SCH ×2 (08:23→21:07)
[2020-04-06] MEDS: SERTRALINE 25 MG TAB PO SCH (08:27)
[2020-04-06] MEDS: VORTIOXETINE HYDROBROMIDE 10 MG TABLET PO SCH (08:27)
[2020-04-06] MEDS: LORazepam 0.5 MG TAB PO PRN (10:00)
[2020-04-06] MEDS: LACTATED RINGERS 1,000 ML IV SCH (10:01)
[2020-04-06] MEDS: CHOLESTYRAMINE (WITH SUGAR) 4 GM PACKET PO SCH ×3 (12:39→17:38)
--- NOTE | 2020-04-06 14:46 | P.PN ---
Subjective Patient is admitted for nausea vomiting diarrhea, diarrhea has been going on for about 8 days. Patient was a valid by gastroneurology they believe patient has infectious diarrhea patient was started on oral Cipro and metronidazole. Patient to kidney function improved but patient is bit hyperchloremic because of which IV fluids will be changed to lactated Ringer's. Patient had 1 episode of loose stools today morning patient was having significant diarrhea yesterday. Patient's creatinine improved from 1.5-1.1 for today. Clostridium difficile is negative. Objective - Vital Signs Vital signs: Vital Signs Temp 98.1 F 04/06/20 14:25 Pulse 71 04/06/20 14:25 Resp 16 04/06/20 14:25 BP 125/69 04/06/20 14:25 Pulse Ox 96 04/06/20 14:25 Intake & Output 04/05/20 04/06/20 04/06/20 18:59 06:59 18:59 Intake Total 750 Balance 750 Weight 62.596 kg Intake: Intake, IV Titration 750 Amount Sodium Chloride 0.9% 1, 750 000 ml @ 125 mls/hr IV . Q8H [facility] Rx#:[id number] Oral 0 Other: Voiding Method Toilet Toilet # Voids 1 # Bowel Movements 4 5 2 - Exam PHYSICAL EXAMINATION: GENERAL: The patient is alert and oriented x3, not in any acute distress. Well developed, well nourished. HEENT: Pupils are round and equally reacting to light. EOMI. No scleral icterus. No conjunctival pallor. Normocephalic, atraumatic. No pharyngeal erythema. No thyromegaly. CARDIOVASCULAR: S1 and S2 present. No murmurs, rubs, or gallops. PULMONARY: Chest is clear to auscultation, no wheezing or crackles. ABDOMEN: Soft, nontender, nondistended, normoactive bowel sounds. No palpable organomegaly. MUSCULOSKELETAL: No joint swelling or deformity. EXTREMITIES: No cyanosis, clubbing, or pedal edema. NEUROLOGICAL: Gross neurological examination did not reveal any focal deficits. SKIN: No rashes. - Labs CBC & Chem 7: 04/05/20 13:01 04/06/20 05:43 Labs: Abnormal Lab Results - Last 24 Hours (Table) 04/05/20 04/06/20 Range/Units 13:01 05:43 Chloride 115 H (98-107) mmol/L BUN 34 H (9-20) mg/dL Stool Lactoferrin POSITIVE A (NEGATIVE) Microbiology - Last 24 Hours (Table) 04/05/20 16:26 Stool Culture - Preliminary Stool Assessment and Plan Plan: -Colitis possibly infectious colitis: Patient will be started on Cipro and metronidazole. There was an incidental finding of about 5.7 cm abdominal aortic aneurysm which need to be followed as an outpatient. And there is an incidental mass on left kidney for which patient will follow-up with urology -Acute renal failure: Secondary to diarrhea. Improved with IV fluids. Patient is hyperchloremic patient has a hyperchloremic metabolic acidosis because of which IV fluids will be switched to lactated Ringer's -Hypokalemia secondary to diarrhea, we'll replace by protocol -Depression -DVT prophylaxis with heparin GI prophylaxis with Pepcid
[2020-04-06] MEDS: metroNIDAZOLE 500 MG TAB PO SCH ×2 (15:59→21:07)
--- NOTE | 2020-04-06 17:19 | CONS ---
CONSULTATION DATE OF SERVICE: 04/06/2020 REQUESTING PHYSICIAN: Dr. Phillip Lee. REASON FOR CONSULTATION: Acute diarrhea. HISTORY OF PRESENT ILLNESS: The patient is an 89-year-old pleasant white male admitted to the hospital because of acute onset of diarrhea for the last 3 days duration. He has been having bowel movements anywhere from 5 to 10 a day which are loose to watery in consistency with no blood or mucus in the stool. He denies any associated abdominal pain. No fever, chills, or night sweats. No nausea, vomiting. Denies having these symptoms in the past. He denies starting on new medications recently and he denies taking any antibiotics recently. He did have stool for C difficile done that was negative. He recalls having a colonoscopy about 5 years ago that was normal. The patient has prior history of colon cancer diagnosed in 2012 for which he underwent surgical resection followed by chemotherapy for 6 months. PAST MEDICAL HISTORY: Significant for prostate cancer diagnosed in 1996, had recurrence in 2010 and underwent radiation therapy at that time. History of colon cancer diagnosed in 2012 and had surgery followed by chemotherapy for 6 months, hypothyroidism, hypertension, anxiety, depression. MEDICATIONS: Medications at home include Ativan, Zestoretic, Imodium, Zoloft, . PAST SURGICAL HISTORY: Colon resection, prostate surgery. FAMILY HISTORY: Brother had some cancer. Sister also had some kind of cancer. ALLERGIES: None. SOCIAL HISTORY: No smoking. No alcohol use. REVIEW OF SYSTEMS: CARDIOPULMONARY: No chest pain, no shortness of breath. : No dysuria or hematuria. MUSCULOSKELETAL: Unremarkable. SKIN: Unremarkable. ENDOCRINE: Unremarkable. PSYCHIATRIC: Unremarkable. NEUROLOGY: Unremarkable. ENT/VISION: Unremarkable. CONSTITUTIONAL: No recent weight loss. No fever, chills, night sweats. PHYSICAL EXAMINATION: GENERAL: He appears comfortable. No apparent distress. VITAL SIGNS: Stable. Blood pressure is 147/89, pulse rate 80, temperature 98.2. HEENT: Examination unremarkable. Conjunctivae pink. Sclerae anicteric. Oral cavity no lesions. NECK: No JVD or lymph node enlargement. CHEST: Clear to auscultation. HEART: Regular rate and rhythm. ABDOMEN: Soft. Bowel sounds are positive. No organomegaly. EXTREMITIES: No pedal edema. SKIN: No rashes. NEURO: He is alert and oriented x3. No focal deficits. LABS: From yesterday WBC 8.7, hemoglobin 12.4, platelets normal. Basic metabolic panel showed a potassium of 3.2, sodium 136, BUN 53, creatinine 1.57. ALT, AST, T-bilirubin, alkaline phosphatase are normal. C difficile toxin is negative. Stool Giardia is negative. Coronavirus PCR negative and stool lactoferrin was positive. IMPRESSION: 1. This is a patient who presented to the hospital with acute onset of diarrhea for the last 3 days duration, having bowel movements anywhere from 5 to 10 a day which are loose to watery in consistency with no blood or mucus in the stool. C-diff negative. Stool lactoferrin positive. Most likely dealing with infectious etiology, doubt inflammatory bowel disease given the clinical presentation. CT scan showed thickening of the left colon consistent with acute colitis. 2. History of colon cancer diagnosed in 2012, status post colon surgery followed by chemotherapy for 6 months. Last surveillance colonoscopy according to the patient was 5 years ago and was within normal limits. 3. History of hypertension. 4. History of anxiety and depression. 5. History of prostate cancer status post radiation therapy in 2010. RECOMMENDATIONS: 1. We will start him on empiric antibiotics with Cipro and Flagyl for possible infectious colitis. 2. Clear liquid diet and advance as tolerated. 3. Questran as needed. 4. We will follow him closely. If he continues to have persistent diarrhea, we may consider an endoscopic evaluation during this hospitalization. 5. The plan was discussed with the patient. He is agreeable to it. Thank you for this consultation. OBI / [id number]: [id number] /
[2020-04-06] MEDS ORDERED: ONDANSETRON 4 MG/2 ML VIAL IVP PRN (17:47)
[2020-04-06] MEDS: CIPROFLOXACIN HCL 500 MG TAB PO SCH (21:07)
[2020-04-07] MEDS: LORazepam 0.5 MG TAB PO PRN ×2 (00:19→09:51)
[2020-04-07] MEDS: LACTATED RINGERS 1,000 ML IV SCH ×2 (00:23→13:30)
[2020-04-07 05:52] LABS: Basophils % (A) 1 %; Eosinophils # (A) 0.2 k/uL (0-0.7); Eosinophils % (A) 3 %; HCT 35.1 % (39.0-53.0); HGB 11.3 gm/dL (13.0-17.5); Lymphocytes # (A) 0.9 k/uL (1.0-4.8); Lymphocytes % (A) 13 %; MCH 31.6 pg (25.0-35.0); MCHC 32.2 g/dL (31.0-37.0); MCV 98.3 fL (80.0-100.0); Mean Platelet Volume 8.8; Monocytes # (A) 0.8 k/uL (0-1.0); Monocytes % (A) 11 %; Neutrophils # (A) 4.9 k/uL (1.3-7.7); Neutrophils % (A) 70 %; Platelet Count 384 k/uL (150-450); RBC 3.56 m/uL (4.30-5.90); RDW 13.6 % (11.5-15.5); WBC 7.1 k/uL (3.8-10.6)
[2020-04-07 06:07] LABS: Albumin 2.6 g/dL (3.5-5.0); Calcium 8.4 mg/dL (8.4-10.2); Magnesium 1.9 mg/dL (1.6-2.3); Potassium 4.1 mmol/L (3.5-5.1); Total Bilirubin 0.4 mg/dL (0.2-1.3); Total Protein 5.2 g/dL (6.3-8.2)
[2020-04-07] MEDS: CIPROFLOXACIN HCL 500 MG TAB PO SCH (08:35)
[2020-04-07] MEDS: SERTRALINE 25 MG TAB PO SCH (08:37)
[2020-04-07] MEDS: metroNIDAZOLE 500 MG TAB PO SCH ×2 (08:37→15:33)
--- NOTE | 2020-04-07 08:37 | P.PN ---
Subjective Progress Note Date: 04/07/20 Principal diagnosis: Acute colitis 89-year-old male presented to the emergency room and admitted to the observation unit for diarrhea for a 8 day duration with associated weakness. Patient has significant medical history of prostate and colon cancer-resolved at this time. Patient stated he was having 5-10 bowel movements a day with water consistency with no blood or mucus in the stool. Patient denies abdominal pain, nausea, fever, chills, or associated symptoms at this time. Patient had one episode of loose stool last night. Patient tolerating regular diet at this time .patient alert and answering questions appropriately and no acute signs of distress Objective - Vital Signs Vital signs: Vital Signs Temp 98.4 F 04/07/20 02:08 Pulse 86 04/07/20 02:08 Resp 18 04/07/20 02:08 BP 147/77 04/07/20 02:08 Pulse Ox 94 L 04/07/20 02:08 Intake & Output 04/06/20 04/07/20 04/07/20 18:59 06:59 18:59 Intake Total 2080 200 Balance 2080 200 Intake: Intake, IV Titration 1200 Amount Lactated Ringers 1,000 ml 450 @ 75 mls/hr IV .[id number] ABIODUN Rx#:[id number] Sodium Chloride 0.9% 1, 750 000 ml @ 75 mls/hr IV . [id number] ABIODUN Rx#:[id number] Oral 880 Other 200 Other: Voiding Method Toilet Toilet # Voids 2 3 # Bowel Movements 2 2 - Constitutional General appearance: Present: cooperative, no acute distress - EENT Eyes: Present: EOMI, PERRLA Ears: bilateral: normal - Neck Neck: Present: normal ROM Carotids: bilateral: upstroke normal Thyroid: bilateral: normal size - Respiratory Respiratory: bilateral: CTA - Cardiovascular Heart rate: 88 Heart sounds: normal: S1, S2 - Gastrointestinal General gastrointestinal: Present: hyperactive bowel sounds - Integumentary Integumentary: Present: normal turgor - Neurologic Neurologic: Present: CNII-XII intact - Musculoskeletal Musculoskeletal: Present: generalized weakness (Mild patient able to ambulate with assistance) - Allied health notes Allied health notes reviewed: nursing - Labs CBC & Chem 7: 04/07/20 05:37 04/07/20 05:37 Labs: Abnormal Lab Results - Last 24 Hours (Table) 04/07/20 04/07/20 Range/Units 05:37 05:37 RBC 3.56 L (4.30-5.90) m/uL Hgb 11.3 L (13.0-17.5) gm/dL Hct 35.1 L (39.0-53.0) % Lymphocytes # 0.9 L (1.0-4.8) k/uL Chloride 115 H (98-107) mmol/L Carbon Dioxide 20 L (22-30) mmol/L BUN 24 H (9-20) mg/dL Glucose 101 H (74-99) mg/dL AST 13 L (17-59) U/L Total Protein 5.2 L (6.3-8.2) g/dL Albumin 2.6 L (3.5-5.0) g/dL - Imaging and Cardiology CT scan - abdomen: report reviewed Assessment and Plan Assessment: Acute colitis Dehydration Abdominal aortic aneurysm Hypertension Hypothyroidism Osteoarthritis History of prostate and colon cancer Mixed anxiety and depression (1) Dehydration Narrative/Plan: Mild hydration with IV fluids Current Visit: Yes Status: Resolved Code(s): E86.0 - DEHYDRATION SNOMED Code(s): 32563703 (2) Diarrhea Narrative/Plan: Intermittent episodes-decreased Follow gastroenterology recommendations Current Visit: Yes Status: Acute Code(s): R19.7 - DIARRHEA, UNSPECIFIED SNOMED Code(s): 82439247 Plan: Acute colitis-continue Cipro and Flagylcontinue recommendations of gastroenterology Dehydrationcontinue IV hydration Diarrhea-resolving continue medications for antidiarrheal as needed-advance diet to regular diet Continue medical management Hopeful discharge today Time with Patient: Greater than 30
[2020-04-07] MEDS: VORTIOXETINE HYDROBROMIDE 10 MG TABLET PO SCH (08:38)
[2020-04-07] MEDS: HEPARIN SODIUM,PORCINE 5,000 UNIT/ML 1 ML VIAL SQ SCH (08:38)
[2020-04-07] MEDS ORDERED: FAMOTIDINE 20 MG TAB PO SCH (09:00)
[2020-04-07] MEDS: CHOLESTYRAMINE (WITH SUGAR) 4 GM PACKET PO SCH ×2 (09:51→15:33)
[2020-04-07 15:17] VITALS: BP 126/66; PULSE 78; RESP 18; TEMP 98.1
--- NOTE | 2020-04-07 15:28 | PN ---
PROGRESS NOTE DATE OF SERVICE: 04/07/2020 Patient is an 89-year-old pleasant white male admitted to the hospital with acute severe diarrhea of 8 day's duration. He was having about 5-10 loose watery bowel movements daily. His stool studies were positive for lactoferrin, but C difficile was negative. Cultures are still pending. In the meantime, he was started on empiric antibiotics with Cipro and Flagyl orally and he is feeling better. He had 2 bowel movements today. He is also on Imodium as needed as well as Questran one packet twice daily. He reports no abdominal pain. No nausea, no vomiting. PHYSICAL EXAMINATION: Appears comfortable. VITAL SIGNS: Stable. Blood pressure 122/85, pulse 87, temperature 98.7. HEENT: Examination unremarkable, conjunctivae are pink, sclerae nonicteric, oral cavity no lesions. NECK: No JVD or lymph node enlargement. CHEST: Clear to auscultation. HEART: Regular rate and rhythm. ABDOMEN: Soft, bowel sounds are positive, no organomegaly. EXTREMITIES: No pedal edema. SKIN: No rashes. NEUROLOGIC: Alert and oriented x3. No focal deficits. LABS: From today WBC 7.1, hemoglobin 11.3, platelets normal. Basic metabolic panel is within normal limits. BUN and creatinine are 24 and 1.07 respectively. IMPRESSION: 1. Acute onset of diarrhea of 8 day's duration, patient having bowel movements 5-10 a day. CAT scan showed evidence of thickening of the colon suspicious for acute colitis. Patient on empiric antibiotics for infectious colitis with Cipro and Flagyl and he is doing much better. Diarrhea is improving. 2. History of colon cancer diagnosed in 2012, status post surgery. Last colonoscopy was 5 years ago. 3. History of prostate cancer, status post radiation therapy in 2010. RECOMMENDATIONS: 1. Continue with Cipro and Flagyl for one week. 2. Advance diet as tolerated. 3. Since symptoms are improving, he can be discharged home today with outpatient followup in 2 weeks. Thank you for this consultation. MMODL / IJN: [id number] /
--- NOTE | 2020-04-08 07:56 | P.DS ---
Providers Date of admission: 04/05/20 15:20 Expected date of discharge: 04/07/20 Attending physician: Phillip Lee Consults: 04/05/20 14:55 Consult Physician Routine Consulting Provider: Barbra Lyle Consult Reason/Comments: Subacute diarrhea Do you want consulting provider notified?: Yes Primary care physician: Phillip Lee - Discharge Diagnosis(es) (1) Diarrhea Resolving with IV antibiotics of Cipro and Flagyl Status: Acute Hospital Course: 89-year-old male was admitted to the observation unit for diarrhea for 8 day duration with associated generalized weakness. Initial clinical presentation and diagnostic testing revealed acute colitis and mild dehydration. IV hydration therapy with initial normal saline was switched to lactated Ringer's due to elevated chloride with hydration of lactated Ringer's chloride levels decreased. patient was started on broad-spectrum antibiotics Cipro and Flagyl for acute colitis. Consult to gastroenterology recommendations for continue broad-spectrum antibiotics and follow-up in 2-3 weeks. Patient able to perform ADLs and no associated diarrhea with the last 12 hours. Patient tolerated full regular diet as well Assessment: Acute colitis Diarrhea Dehydration Abdominal aortic aneurysm Hypertension Hypothyroidism Osteoarthritis History of prostate and colon cancer Aches anxiety and depression Health Concerns: Advancing age Pertinent Studies: CAT scan abdomen and pelvis Procedures: None noted Patient Condition at Discharge: Fair Plan - Discharge Summary New Discharge Prescriptions: New Ciprofloxacin HCl [Cipro] 500 mg PO BID #14 tab metroNIDAZOLE [Flagyl] 500 mg PO TID #21 tab Continue Vortioxetine Hydrobromide [Trintellix] 10 mg PO DAILY Sertraline [Zoloft] 25 mg PO DAILY Lisinopril-Hctz 20-12.5 mg [Zestoretic 20-12.5] 1 tab PO DAILY LORazepam [Ativan] 0.5 mg PO BID PRN PRN Reason: Anxiety Loperamide HCl [Imodium] 4 mg PO Q12H PRN PRN Reason: Loose Stool Discharge Medication List LORazepam [Ativan] 0.5 mg PO BID PRN 04/05/20 [History] Lisinopril-Hctz 20-12.5 mg [Zestoretic 20-12.5] 1 tab PO DAILY 04/05/20 [History] Loperamide HCl [Imodium] 4 mg PO Q12H PRN 04/05/20 [History] Sertraline [Zoloft] 25 mg PO DAILY 04/05/20 [History] Vortioxetine Hydrobromide [Trintellix] 10 mg PO DAILY 04/05/20 [History] Ciprofloxacin HCl [Cipro] 500 mg PO BID #14 tab 04/07/20 [Rx] metroNIDAZOLE [Flagyl] 500 mg PO TID #21 tab 04/07/20 [Rx] Follow up Appointment(s)/Referral(s): Phillip Lee MD [Primary Care Provider] - 1-2 days Robin Price MD [STAFF PHYSICIAN] - 1 Week Patient Instructions/Handouts: Acute Diarrhea (ED) Activity/Diet/Wound Care/Special Instructions: She will be admitted Discharge Disposition: HOME SELF-CARE
== END 2020-04-07 16:20 | disposition home or self-care (01) ==
LOC: EC 11:42 → 6NMEDSUR 15:20 → OBSVTOIN 15:20 → INTOOBSV 15:20 → 1SOBS 16:59 → UNDODISIN 04-07 16:20
PROVIDERS: ADMIT Family Medicine; ATTEND Family Medicine
DX: K52.9 Noninfective gastroenteritis and colitis, unspecified (principal); N17.9 Acute kidney failure, unspecified; E87.2 Acidosis; E87.8 Other disorders of electrolyte and fluid balance, not elsewhere classified; E86.0 Dehydration; E87.6 Hypokalemia; I71.4 Abdominal aortic aneurysm, without rupture; I10 Essential (primary) hypertension; E03.9 Hypothyroidism, unspecified; D64.9 Anemia, unspecified; I44.0 Atrioventricular block, first degree; I45.10 Unspecified right bundle-branch block; K42.9 Umbilical hernia without obstruction or gangrene; N28.89 Other specified disorders of kidney and ureter; F32.9 Major depressive disorder, single episode, unspecified; F41.9 Anxiety disorder, unspecified; M19.90 Unspecified osteoarthritis, unspecified site; Z20.828 Contact with and (suspected) exposure to other viral communicable diseases; Z79.899 Other long term (current) drug therapy; Z85.46 Personal history of malignant neoplasm of prostate; Z85.038 Personal history of other malignant neoplasm of large intestine; Z92.3 Personal history of irradiation; Z90.49 Acquired absence of other specified parts of digestive tract; Z92.21 Personal history of antineoplastic chemotherapy; Z80.9 Family history of malignant neoplasm, unspecified
CPT/HCPCS: 96361 ×3; 96372 ×3; 96374; 99285; 36415; 93005; 80053 ×2; 80048; 82150; 83605; 83690; 83735; 84484; 85025 ×2; 81003; 87324; 87045; 87329; 83630; 87046; 87635; 74176; G0378 ×4; J1644 ×3; J2405; 96360